=== PATIENT | female | born 1995 | race Caucasian/White ===

== ENCOUNTER 2019-07-18 12:39 | Emergency (ER) | payer MEDICAID, OTHER ==
[~2019-07-18] VITALS: Ht 160 cm; Wt 79.5 kg
[~2019-07-18 12:39] MED LIST: NAPR-514 PO; OXYC1TAB15 PO; PNV1TABL25 PO
[2019-07-18 13:05] VITALS: BP 120/83
[2019-07-18] MEDS ORDERED: ONDA4TAB12 PO (13:39)
--- NOTE | 2019-07-18 13:39 | PHYS DOC ---
Past Medical History Past Medical History: No Pertinent History Past Surgical History: Tubal ligation, Other Additional Past Surgical Histo: DENTAL Smoking Status: Never Smoker Alcohol Use: Occasionally Drug Use: None General Adult EDM: Chief Complaint: NAUSEA/VOMITING/DIARRHA HPI: HPI: Patient is a 23 year old female with no significant medical history who presents to the ED today complaining of vomiting and diarrhea that occurred yesterday and the day before. Patient states symptoms have subsided today and she would like a note to return to work. Denies any abdominal pain. Denies any concerns for COVID19. She states she works at [employer]. Review of Systems: Review of Systems: Constitutional: Denies fever or chills. [] Eyes: Denies change in visual acuity. [] HENT: Denies nasal congestion or sore throat. [] Respiratory: Denies cough or shortness of breath. [] Cardiovascular: Denies chest pain or edema. [] GI: Reports nausea, vomiting and diarrhea. Denies abdominal pain, bloody stools. [] : Denies dysuria. [] Musculoskeletal: Denies back pain or joint pain. [] Integument: Denies rash. [] Neurologic: Denies headache, focal weakness or sensory changes. [] Psychiatric: Denies depression or anxiety. [] Heart Score: Risk Factors: Risk Factors: DM, Current or recent (<one month) smoker, HTN, HLP, family history of CAD, obesity. Risk Scores: Score 0 - 3: 2.5% MACE over next 6 weeks - Discharge Home Score 4 - 6: 20.3% MACE over next 6 weeks - Admit for Clinical Observation Score 7 - 10: 72.7% MACE over next 6 weeks - Early Invasive Strategies Allergies: Allergies: Allergies Coded Allergies Type Severity Reaction Last Updated Verified No Known Drug Allergies 07/28/14 No Physical Exam: PE: Constitutional: Well developed, well nourished, no acute distress, non-toxic appearance. [] HENT: Normocephalic, atraumatic, bilateral external ears normal, oropharynx moist, no oral exudates, nose normal. [] Eyes: PERRLA, EOMI, conjunctiva normal, no discharge. [] Neck: Normal range of motion, no tenderness, supple, no stridor. [] Cardiovascular:Heart rate regular rhythm, no murmur [] Lungs & Thorax: Bilateral breath sounds clear to auscultation [] Abdomen: Bowel sounds normal, soft, no tenderness, no masses, no pulsatile masses. [] Skin: Warm, dry, no erythema, no rash. [] Back: No tenderness, no CVA tenderness. [] Extremities: No tenderness, no cyanosis, no clubbing, ROM intact, no edema. [] Neurologic: Alert and oriented X 3, normal motor function, normal sensory function, no focal deficits noted. [] Psychologic: Affect normal, judgement normal, mood normal. [] Current Patient Data: Vital Signs: Vital Signs Date Time Temp Pulse Resp B/P (MAP) Pulse Ox O2 Delivery O2 Flow Rate FiO2 07/18/19 13:05 98.0 69 20 120/83 (95) 97 Room Air 98.0 EKG: EKG: [] Radiology/Procedures: Radiology/Procedures: [] Course & Med Decision Making: Course & Med Decision Making Pertinent Labs and Imaging studies reviewed. (See chart for details) This is a 23-year-old female patient presenting to the ED today with vomiting and diarrhea that she had for 2 days that has subsided and would like a note to go to work. Note was provided. Good hand hygiene emphasized. Dragon Disclaimer: [employer] Disclaimer: This electronic medical record was generated, in whole or in part, using a voice recognition dictation system. Departure Departure Impression: Primary Impression: Nausea & vomiting Qualified Codes: R11.2 - Nausea with vomiting, unspecified Additional Impression: Diarrhea Qualified Codes: R19.7 - Diarrhea, unspecified Disposition: 01 HOME, SELF-CARE Condition: STABLE Referrals: NO PCP (PCP) Patient Instructions: Diarrhea, Nausea and Vomiting, [id number] Additional Instructions: You can return to work Please keep your hands clean Push fluids Please return to the ER if symptoms worsen Scripts Ondansetron (ONDANSETRON ODT) 4 Mg Tab.rapdis 1 TAB PO PRN Q6-8HRS, #16 TAB Prov: GRIS BYRD APRN 07/18/19 Justicifation of Admission Dx: Justifications for Admission: Justification of Admission Dx: N/A GRIS BYRD APRN Jul 18, 2019 13:39
== END 2019-07-18 13:40 | disposition home or self-care (01) ==
LOC: ER 12:39
DX: R11.2 Nausea with vomiting, unspecified (principal); R19.7 Diarrhea, unspecified; Z98.51 Tubal ligation status; Z98.890 Other specified postprocedural states
CPT/HCPCS: 99283

== ENCOUNTER 2021-02-09 16:11 | Emergency (ER) | payer BC, MEDICAID ==
[~2021-02-09] VITALS: Ht 160 cm; Wt 83.1 kg
[~2021-02-09 16:11] MED LIST changes: +ONDA4TAB12 PO
--- NOTE | 2021-02-09 18:32 | PHYS DOC ---
Past Medical History Past Medical History: No Pertinent History (DIANA LEONE APRN) Past Surgical History: Tubal ligation, Other Additional Past Surgical Histo: DENTAL (DIANA LEONE APRN) Smoking Status: Never Smoker Alcohol Use: Occasionally Drug Use: None (DIANA LEONE APRN) General Adult EDM: Chief Complaint: COUGH HPI: HPI: Patient is a 25-year-old female who presents to the emergency department with a nonproductive cough for 2 weeks. She states that she has been taking NyQuil and DayQuil at home for her symptoms. 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 She denies any sick exposures, shortness of breath, chest pain, nausea, vomiting, loss of taste or smell, fevers. Patient's vital signs are stable, she is not tachycardic or hypoxic. (DIANA LEONE APRN) Review of Systems: Review of Systems: Constitutional: See HPI Respiratory: See HPI Cardiovascular: See HPI GI: See HPI (DIANA LEONE APRN) Heart Score: C/O Chest Pain: No Risk Factors: Risk Factors: DM, Current or recent (<one month) smoker, HTN, HLP, family history of CAD, obesity. Risk Scores: Score 0 - 3: 2.5% MACE over next 6 weeks - Discharge Home Score 4 - 6: 20.3% MACE over next 6 weeks - Admit for Clinical Observation Score 7 - 10: 72.7% MACE over next 6 weeks - Early Invasive Strategies (DIANA LEONE APRN) Allergies: Allergies: Allergies Coded Allergies Type Severity Reaction Last Updated Verified No Known Drug Allergies 07/28/14 No (DIANA LEONE APRN) Physical Exam: PE: Constitutional: Well developed, well nourished, no acute distress, non-toxic appearance. [] HENT: Normocephalic, atraumatic, bilateral external ears normal, oropharynx moist, no oral exudates, nose normal. [] Eyes: PERRL, EOMI, conjunctiva normal, no discharge. [] Neck: Normal range of motion, no tenderness, supple, no stridor. [] Cardiovascular:Heart rate regular rhythm, no murmur [] Lungs & Thorax: Bilateral breath sounds clear to auscultation [] Abdomen: Bowel sounds normal, soft, no tenderness, no masses, no pulsatile masses. [] Skin: Warm, dry, no erythema, no rash. [] Back: Normal range of motion Extremities: No tenderness, no cyanosis, no clubbing, ROM intact, no edema. [] Neurologic: Alert and oriented X 3, normal motor function, normal sensory function, no focal deficits noted. [] Psychologic: Affect normal, judgement normal, mood normal. [] (DIANA LEONE APRN) Current Patient Data: Labs: Laboratory Tests Test 02/09/21 18:11 Influenza Type A Antigen Negative Influenza Type B Antigen Negative Vital Signs: Vital Signs Date Time Temp Pulse Resp B/P (MAP) Pulse Ox O2 Delivery O2 Flow Rate FiO2 02/09/21 17:56 98.2 78 18 129/87 (101) 96 Room Air 98.2 (DIANA LEONE APRN) EKG: EKG: [] (DIANA LEONE APRN) Radiology/Procedures: Radiology/Procedures: [] (DIANA LEONE APRN) Course & Med Decision Making: Course & Med Decision Making Pertinent Labs and Imaging studies reviewed. (See chart for details) Patient presents to the emergency department with a nonproductive cough x2 weeks. Patient is not reporting any shortness of breath or chest pain. Her vital signs are stable and she is not tachycardic or hypoxic. Patient be tested for influenza and COVID-19. Her rapid influenza test was negative. Patient will be notified of her COVID-19 results when they become available in approximately 1 to 2 days and she is advised to self isolate until she receives these results. Discharged home with cough medication. I discussed with patient all findings and diagnostic testing as well as the need to follow-up with PCP for further evaluation and treatment or return to the ER if any new or worsening symptoms. Strict return precautions were also discussed at length. Patient voiced understanding and agreement with the plan. Patient is hemodynamically stable at the time of disposition. (DIANA LEONE APRN) Course & Med Decision Making Patients Care and treatment plan provided by ER Nurse Practitioner. I was available for consult. Patient's chart reviewed. (SHAHID BLEVINS DO) [employer] Disclaimer: [employer] Disclaimer: This electronic medical record was generated, in whole or in part, using a voice recognition dictation system. (DIANA LEONE APRN) Departure Departure Impression: Primary Impression: Person under investigation for COVID-19 Disposition: HOME / SELF CARE / HOMELESS Condition: GOOD Referrals: NO PCP (PCP) Patient Instructions: Cough, Adult Additional Instructions: You are seen in the emergency department today for cough. Your rapid influenza test was negative. We tested you for COVID-19 and you will be notified of those results when they become available in approximately 1 to 2 days, please self isolate until you receive these results. For your cough you are being discharged home with a cough medication take this as directed. Increase your fluids and rest. For any pain or fevers you can take Tylenol and/ibuprofen. Follow-up with your primary care provider tomorrow regarding your ER visit. Return to the emergency department if you develop worsening of your shortness of breath, chest pain, high fevers refractory to treatment, intractable nausea or vomiting Scripts Benzonatate (BENZONATATE) 200 Mg Capsule 1 CAP PO PRN TID PRN for cough for 7 Days, #21 CAP 0 Refills Prov: DIANA LEONE APRN 02/09/21 DIANA LEONE APRN Feb 09, 2021 18:32 SHAHID BLEVINS DO Feb 09, 2021 20:27
[2021-02-09 18:51] LABS: INFLUENZA A PATIENT NEGATIVE (NEGATIVE); INFLUENZA B PATIENT NEGATIVE (NEGATIVE)
[2021-02-09] MEDS ORDERED: BENZ200C47 PO (19:20)
[2021-02-09 19:25] VITALS: BP 98/75
--- NOTE | 2021-02-10 16:50 | NUR ---
IP: Informed pt of negative covid test. pt verbalized understanding.
== END 2021-02-09 19:30 | disposition home or self-care (01) ==
LOC: ER 16:11
DX: R05.9 Cough, unspecified (principal); Z20.822 Contact with and (suspected) exposure to COVID-19
CPT/HCPCS: 87804; 99283; U0003; U0005